=== PATIENT | female | born 1990 | race Caucasian/White ===

== ENCOUNTER 2017-06-04 04:18 | Emergency (ER) | payer BC, OTHER ==
[~2017-06-04] VITALS: Ht 154.9 cm; Wt 47.4 kg
[~2017-06-04 04:18] MED LIST: ALBUAER19 INH
[2017-06-04 04:23] VITALS: TEMP 36.6; Ht 154.9 cm; Wt 47.4 kg
[2017-06-04] MEDS ORDERED: SODIUM CHLORIDE 0.9% 1000ML 1,000 ML IV STA (04:31)
[2017-06-04 04:49] LABS: BASO % 0.1 %; BASO ABS # 0.01 K/uL (0-0.2); EOS % 1.1 %; EOS ABS # 0.14 K/uL (0-0.5); HEMATOCRIT 39.7 % (37-47); HEMOGLOBIN 13.6 g/dL (12.0-16.0); IG# 0.01 K/uL (0.00-0.02); LYMPH % 16.7 %; LYMPH ABS # 2.16 K/uL (1.2-3.4); MEAN CELL VOLUME 91.9 fL (80-100); MEAN CORPUSCULAR HEMOGLOBIN 31.5 pg (25-34); MEAN CORPUSCULAR HGB CONC 34.3 g/dl (32-36); MEAN PLATELET VOLUME 10.5 fL (7.4-10.4); MONO % 7.1 %; MONO ABS # 0.91 K/uL (0.11-0.59); NEUT % 74.9 %; NEUT ABS # 9.67 K/uL (1.4-6.5); PLATELET COUNT 249 K/uL (130-400); RED CELL DISTRIBUTION WIDTH CV 12.4 % (11.5-14.5); RED CELL DISTRIBUTION WIDTH SD 42.2 fL (36.4-46.3)
[2017-06-04 05:07] LABS: CALCIUM 8.6 mg/dl (8.5-10.1); CREATININE 0.68 mg/dl (0.60-1.20); POTASSIUM 3.7 mmol/L (3.5-5.1)
--- NOTE | 2017-06-04 05:54 | EMERGENCY ROOM VISIT NOTE ---
History First contact with patient: 04:26 Chief Complaint: HEADACHE Stated Complaint: HEADACHE,COLD/HOT FLASHES,VOMITING History of Present Illness The patient is a 27 year old female who presents to the Emergency Room with complaints of lightheadedness, nausea, vomiting, decreased by mouth intake and headache. Patient states she feels dehydrated. She is requesting IV fluids. Patient has a history of migraines. She describes the headache as throbbing, ranging in severity 6 out of 10 throughout her head. Nothing makes it better or worse. Patient denies chest pain, dyspnea, fever, chills, cough, congestion , cold symptoms, neck stiffness, sore throat, diarrhea, abdominal pain. Review of Systems See HPI for pertinent positives & negatives. A total of 10 systems reviewed and were otherwise negative. Past Medical/Surgical History Medical Problems: (1) 39 weeks gestation of (2) Anxiety (3) Asthma (4) section (5) History of - miscarriage (6) Migraine (7) Pelvic pain (8) 32+wks Surgical Problems: (1) Previous delivery affecting , delivered Family History FH: cancer FH: migraines MOTHER Social History Smoking Status: Never Smoker Alcohol Use: none Drug Use: none Marital Status: , in relationship Housing Status: lives with family Occupation Status: employed Current/Historical Medications No Active Prescriptions or Reported Meds Physical Exam Vital Signs Date Time Temp Pulse Resp B/P (MAP) Pulse Ox O2 Delivery O2 Flow Rate FiO2 18 04:23 36.6 86 18 128/86 99 Room Air Physical Exam VITALS: Vitals are noted on the nurse's note and reviewed by myself. Vital signs stable. GENERAL: Pleasant female ambulating without difficulties, in no acute distress, nondiaphoretic, well-developed well-nourished. SKIN: The skin was without rashes, erythema, edema, or bruising. There is no tenting of the skin. Capillary reflex less than 2 seconds. HEAD: Normocephalic atraumatic. EARS: External auditory canals clear, tympanic membranes pearly roque without erythema or effusion bilaterally. EYES: Pupils equal round and reactive to light and accommodation. Conjunctivae without injection, sclerae without icterus. Extraocular movements intact. NOSE: Patent, turbinates without inflammation or discharge. No sinus tenderness. MOUTH: Mucous membranes mildly dry. Pharynx without erythema or exudate. Uvula midline. Airway patent. Tongue does not deviate. NECK: Supple without nuchal rigidity. No lymphadenopathy. No thyromegaly. Cervical spine is nontender. No JVD. HEART: Regular rate and rhythm without murmurs gallops or rubs. LUNGS: Clear to auscultation bilaterally without wheezes, rales or rhonchi. No dullness to percussion. No retractions or accessory muscle use. ABDOMEN: Positive bowel sounds x 4. Normal tympanic percussion. Soft, nontender, without masses or organomegaly. Tomlin sign negative. No guarding or rebound tenderness. MUSCULOSKELETAL: No muscle atrophy, erythema, or edema noted. NEURO: Patient was alert and oriented to person place and time. Normal sensation to light and sharp touch. No focal neurological deficits. Cranial nerves II-12 grossly intact. No pronator drift. Cerebellar exam intact. Medical Decision & Procedures Laboratory Results 06/04/17 04:35 Red Blood Count 4.32, Mean Corpuscular Volume 91.9, Mean Corpuscular Hemoglobin 31.5, Mean Corpuscular Hemoglobin Concent 34.3, Mean Platelet Volume 10.5, Neutrophils (%) (Auto) 74.9, Lymphocytes (%) (Auto) 16.7, Monocytes (%) (Auto) 7.1, Eosinophils (%) (Auto) 1.1, Basophils (%) (Auto) 0.1, Neutrophils # (Auto) 9.67, Lymphocytes # (Auto) 2.16, Monocytes # (Auto) 0.91, Eosinophils # (Auto) 0.14, Basophils # (Auto) 0.01 06/04/17 04:35 Test 06/04/17 04:35 White Blood Count 12.90 K/uL (4.8-10.8) Red Blood Count 4.32 M/uL (4.2-5.4) Hemoglobin 13.6 g/dL (12.0-16.0) Hematocrit 39.7 % (37-47) Mean Corpuscular Volume 91.9 fL (80-100) Mean Corpuscular Hemoglobin 31.5 pg (25-34) Mean Corpuscular Hemoglobin Concent 34.3 g/dl (32-36) Platelet Count 249 K/uL (130-400) Mean Platelet Volume 10.5 fL (7.4-10.4) Neutrophils (%) (Auto) 74.9 % Lymphocytes (%) (Auto) 16.7 % Monocytes (%) (Auto) 7.1 % Eosinophils (%) (Auto) 1.1 % Basophils (%) (Auto) 0.1 % Neutrophils # (Auto) 9.67 K/uL (1.4-6.5) Lymphocytes # (Auto) 2.16 K/uL (1.2-3.4) Monocytes # (Auto) 0.91 K/uL (0.11-0.59) Eosinophils # (Auto) 0.14 K/uL (0-0.5) Basophils # (Auto) 0.01 K/uL (0-0.2) RDW Standard Deviation 42.2 fL (36.4-46.3) RDW Coefficient of Variation 12.4 % (11.5-14.5) Immature Granulocyte % (Auto) 0.1 % Immature Granulocyte # (Auto) 0.01 K/uL (0.00-0.02) Anion Gap 7.0 mmol/L (3-11) Est Creatinine Clear Calc Drug Dose 94.6 ml/min Estimated GFR () 140.9 Estimated GFR (Non- 121.6 BUN/Creatinine Ratio 22.5 (10-20) Calcium Level 8.6 mg/dl (8.5-10.1) Human Chorionic Gonadotropin, Qual NEG (NEG) Medications Administered Medications (Trade) Dose Ordered Sig/Gina Route Start Time Stop Time Status Last Admin Dose Admin Sodium Chloride 1,000 ml @ 999 mls/hr Q1H1M STAT IV 06/04/17 04:31 06/04/17 05:31 DC 06/04/17 04:37 999 MLS/HR ED Course Prior records/ancillary studies reviewed. Additional history obtained from family. Triage Nursing notes reviewed. The patient's history was concerning for headache. Differential diagnosis: Etiologies such as migraine headache, meningitis, sinusitis, CO exposure, ICH, SAH, infection, tumor, headache, sinus thrombosis, arterial dissection, as well as others were entertained. Physical examination findings: As above. Non-focal. ER treatment provided: NSS On reassessment the patient felt better. Diagnostics interpreted by me: The labs revealed mild hyperglycemia without DKA. Negative hCG Leukocytosis, most likely marginalization from vomiting Imaging studies: Head CT negative for intracranial bleed per radiology and review This appears to be consistent with headache. Patient was neurovascularly and neurologically intact. Unremarkable workup as above. She felt much better to be medicated as above. She is advised to rest, stay well-hydrated and follow- up family care in a few days or here in the ER sooner for headache, fevers, vomiting, worsening signs or symptoms or as needed. Patient had no signs of meningitis.. By the evaluation outlined above emergent etiologies such as meningitis, sinusitis, CO exposure, ICH, SAH, infection, temporal arteritis, tumor, sinus thrombosis, arterial dissection, as well as others were deemed relatively unlikely. The pt informed about the findings as listed above. All questions were answered and pleased with the treatment. Return instructions were outlined and the patient was discharged in stable condition. Case reviewed with my attending Referral: The patient was referred back to their primary care physician for follow-up in 2 to 3 days for a recheck of the current condition. Medical Decision as above Medication Reconcilliation Current Medication List: was personally reviewed by me Blood Pressure Screening Patient's blood pressure: Normal blood pressure Impression Primary Impression: Headache Additional Impression: Vomiting Departure Information Dispostion Home / Self-Care Condition GOOD Prescriptions No Active Prescriptions or Reported Meds Referrals Estuardo Perez M.D. (PCP) Patient Instructions My [facility] Additional Instructions DO NOT drive, drink alcohol, operate machinery, or perform dangerous activities today. You were given medications in the ER that can affect your ability to safely function or operate a vehicle. Rest today in a quiet, peaceful, dark environment and get a full 8-10 hrs of sleep tonight. Avoid loud noises, smoke/smoking, alcohol, bright lights, stress, or physical exertion today to minimize the chance the headache may return. Continue current medications. Ibuprofen(Motrin, Advil) may be used for fever or pain. Use 400mg every six hours as needed. Take with food. Avoid using more than 1600mg in a 24 hour period. Do not use 1600mg per day for more than three consecutive days without physician direction. Prolonged inappropriate use can lead to stomach upset or ulcers. (AND/OR) Acetaminophen(Tylenol) may be used for fever or pain. Use 500mg every six hours as needed. Avoid using more than 2000mg in a 24 hour period. Return to the ER for passing out, worsening headache, vision problems, neck stiffness/pain, fevers, vomiting, worsening of your condition, or as needed. Follow up with your primary physician and/or a neurologist in 2-3 days for a recheck of your current condition. Problem Qualifiers Primary Impression: Headache Headache type: unspecified Headache chronicity pattern: acute headache Intractability: not intractable Qualified Codes: R51 - Headache
[2017-06-04] MEDS ORDERED: ACETAMINOPHEN 500 MG TAB PO STA (05:59)
[2017-06-04] MEDS ORDERED: ONDANSETRON HOME PACK 4MG OD TAB PO ONE (06:30)
[2017-06-04 06:37] VITALS: BP 106/79; PULSE 83; O2SAT 100
--- NOTE | 2017-06-04 07:40 | DIAGNOSTIC IMAGING REPORT ---
CT HEAD WITHOUT CONTRAST (CT) CLINICAL HISTORY: Severe headache COMPARISON STUDY: 08/20/2013 TECHNIQUE: Axial CT of the brain is performed from the vertex to the skull base. IV contrast was not administered for this examination. A dose lowering technique was utilized adhering to the principles of ALARA. CT DOSE: 537.48 mGy.cm FINDINGS: No intra or extra-axial mass lesions are visualized. There is no CT evidence of acute cortical infarction. There is no evidence of midline shift. There is no acute hemorrhage. No calvarial fractures are visualized. There is a small partially calcified right parietal scalp lesion, likely representing a sebaceous cyst. There is no evidence of pathologic ventricular dilatation. There is no evidence of acute sinusitis IMPRESSION: No acute intracranial findings Electronically signed by: Ramo Short M.D. 06/04/2017 7:39 AM Dictated Date/Time: 06/04/2017 7:38 AM
== END 2017-06-04 06:38 | disposition home or self-care (01) ==
LOC: C.EDB 04:19
DX: R51 Headache (principal); R11.10 Vomiting, unspecified; F41.9 Anxiety disorder, unspecified; J45.909 Unspecified asthma, uncomplicated; Z80.9 Family history of malignant neoplasm, unspecified

== ENCOUNTER 2017-08-03 19:16 | Emergency (ER) | payer BC, OTHER ==
[~2017-08-03] VITALS: Ht 154.9 cm; Wt 48.2 kg
[2017-08-03 19:20] VITALS: TEMP 36.6; Ht 154.9 cm; Wt 48.2 kg
[2017-08-03] MEDS ORDERED: SODIUM CHLORIDE 0.9% 500ML 500 ML IV STA (19:55)
[2017-08-03] MEDS ORDERED: DiphenhydrAMINE 2%/ZINC 0.1% CREAM 28GM TUBE EXT STA (20:26)
[2017-08-03 21:08] LABS: BASO % 0.2 %; BASO ABS # 0.02 K/uL (0-0.2); EOS % 1.2 %; EOS ABS # 0.11 K/uL (0-0.5); HEMOGLOBIN 13.3 g/dL (12.0-16.0); IG# 0.01 K/uL (0.00-0.02); LYMPH % 30.3 %; LYMPH ABS # 2.88 K/uL (1.2-3.4); MEAN CELL VOLUME 90.7 fL (80-100); MEAN CORPUSCULAR HEMOGLOBIN 30.9 pg (25-34); MEAN CORPUSCULAR HGB CONC 34.1 g/dl (32-36); MEAN PLATELET VOLUME 10.8 fL (7.4-10.4); MONO % 10.6 %; MONO ABS # 1.01 K/uL (0.11-0.59); NEUT % 57.6 %; NEUT ABS # 5.48 K/uL (1.4-6.5); PLATELET COUNT 239 K/uL (130-400); RED CELL DISTRIBUTION WIDTH CV 12.6 % (11.5-14.5); RED CELL DISTRIBUTION WIDTH SD 41.8 fL (36.4-46.3); WHITE BLOOD COUNT 9.51 K/uL (4.8-10.8)
[2017-08-03 21:10] LABS: CALCIUM 9.2 mg/dl (8.5-10.1); CREATININE 0.64 mg/dl (0.60-1.20); POTASSIUM 3.4 mmol/L (3.5-5.1)
[2017-08-03] MEDS ORDERED: RANI150T85 PO (21:31)
[2017-08-03] MEDS ORDERED: PRED50TA PO (21:31)
--- NOTE | 2017-08-03 21:32 | EMERGENCY ROOM VISIT NOTE ---
History First contact with patient: 19:36 Chief Complaint: PAIN (GENERALIZED) Stated Complaint: RASH History of Present Illness The patient is a 27 year old female who presents to the Emergency Room with complaints of swelling in the vaginal area that she noticed earlier today. The patient also complains of itching in the area. She is sexually active with one partner. She had multiple bouts of vaginal intercourse yesterday. She does report slight pain with intercourse towards the end. She denies any vaginal discharge. The patient also notes a rash to her chest. She denies any difficulty breathing. No trouble swallowing. The patient switched bath soaps about 1 week ago. They did not use condoms or lubricants during sex. Review of Systems 10 system review performed and negative unless noted in HPI or below Past Medical/Surgical History Medical Problems: (1) 39 weeks gestation of (2) Anxiety (3) Asthma (4) section (5) History of - miscarriage (6) Migraine (7) Pelvic pain (8) 32+wks Surgical Problems: (1) Previous delivery affecting , delivered Family History FH: cancer FH: migraines MOTHER Social History Smoking Status: Never Smoker Alcohol Use: none Drug Use: none Marital Status: , in relationship Housing Status: lives with family Occupation Status: employed Current/Historical Medications Scheduled Prednisone (Prednisone), 50 MG PO DAILY Ranitidine (Zantac), 150 MG PO BID Physical Exam Vital Signs Date Time Temp Pulse Resp B/P (MAP) Pulse Ox O2 Delivery O2 Flow Rate FiO2 08/03/17 20:20 95 22 98 Room Air 08/03/17 19:20 36.6 95 20 147/96 97 Room Air Physical Exam VITALS: Vitals are noted on the nurse's note and reviewed by myself. Vital signs stable. GENERAL: 27-year-old female, in no acute distress, nondiaphoretic, well- developed well-nourished. SKIN: Flat erythematous, blanching, blotchy lesions noted to the chest and back. HEAD: Normocephalic atraumatic. MOUTH: Mucous membranes moist. No swelling of the oral mucosa HEART: Regular rate and rhythm without murmurs gallops or rubs. LUNGS: Clear to auscultation bilaterally without wheezes, rales or rhonchi. No accessory muscle use. ABDOMEN: Positive bowel sounds x 4.Soft, nontender, without organomegaly. No guarding or rebound tenderness. : Left labia minora is edematous. Mildly erythematous. No lesions. Speculum exam reveals a small amount of cream discharge in the vaginal vault. Cervix is pink. The osseous closed. MUSCULOSKELETAL: No muscle atrophy, erythema, or edema noted. Strength 5/5 throughout. NEURO: Patient was alert and oriented to person place and time. Normal sensation to touch. No focal neurological deficits. Medical Decision & Procedures Laboratory Results 08/03/17 20:00 Red Blood Count 4.30, Mean Corpuscular Volume 90.7, Mean Corpuscular Hemoglobin 30.9, Mean Corpuscular Hemoglobin Concent 34.1, Mean Platelet Volume 10.8, Neutrophils (%) (Auto) 57.6, Lymphocytes (%) (Auto) 30.3, Monocytes (%) (Auto) 10.6, Eosinophils (%) (Auto) 1.2, Basophils (%) (Auto) 0.2, Neutrophils # (Auto ) 5.48, Lymphocytes # (Auto) 2.88, Monocytes # (Auto) 1.01, Eosinophils # (Auto ) 0.11, Basophils # (Auto) 0.02 08/03/17 20:00 Test 08/03/17 20:00 White Blood Count 9.51 K/uL (4.8-10.8) Red Blood Count 4.30 M/uL (4.2-5.4) Hemoglobin 13.3 g/dL (12.0-16.0) Hematocrit 39.0 % (37-47) Mean Corpuscular Volume 90.7 fL (80-100) Mean Corpuscular Hemoglobin 30.9 pg (25-34) Mean Corpuscular Hemoglobin Concent 34.1 g/dl (32-36) Platelet Count 239 K/uL (130-400) Mean Platelet Volume 10.8 fL (7.4-10.4) Neutrophils (%) (Auto) 57.6 % Lymphocytes (%) (Auto) 30.3 % Monocytes (%) (Auto) 10.6 % Eosinophils (%) (Auto) 1.2 % Basophils (%) (Auto) 0.2 % Neutrophils # (Auto) 5.48 K/uL (1.4-6.5) Lymphocytes # (Auto) 2.88 K/uL (1.2-3.4) Monocytes # (Auto) 1.01 K/uL (0.11-0.59) Eosinophils # (Auto) 0.11 K/uL (0-0.5) Basophils # (Auto) 0.02 K/uL (0-0.2) RDW Standard Deviation 41.8 fL (36.4-46.3) RDW Coefficient of Variation 12.6 % (11.5-14.5) Immature Granulocyte % (Auto) 0.1 % Immature Granulocyte # (Auto) 0.01 K/uL (0.00-0.02) Anion Gap 6.0 mmol/L (3-11) Est Creatinine Clear Calc Drug Dose 101.3 ml/min Estimated GFR () 143.7 Estimated GFR (Non- 124.0 BUN/Creatinine Ratio 19.3 (10-20) Calcium Level 9.2 mg/dl (8.5-10.1) Human Chorionic Gonadotropin, Qual NEG (NEG) Medications Administered Medications (Trade) Dose Ordered Sig/Gina Route Start Time Stop Time Status Last Admin Dose Admin Sodium Chloride 500 ml @ 999 mls/hr Q31M STAT IV 08/03/17 19:55 08/03/17 20:25 DC 08/03/17 20:19 999 MLS/HR Diphenhydramine HCl (Benadryl Extra Strength Cream) 1 appln ONE STAT EXT 08/03/17 20:26 08/03/17 20:28 DC 08/03/17 20:42 1 [facility] Patient was seen and examined Vital signs including blood pressure were reviewed medications list was verified with patient Labs were obtained, and a saline lock was established Topical Benadryl was applied to the labia minora. The patient was hydrated with normal saline. I suggested that we give the patient steroids and Benadryl. She refused. The patient was observed for 2 hours. The rash began to dissipate. I reviewed discharge instructions the patient. They voiced understanding and had no further questions. Medical Decision Differential diagnosis: Allergic reaction, adverse reaction, angioedema, chafing This patient is a 27-year-old female that presents to the emergency department with swelling to the labia minora and itching since having sexual intercourse with her significant other yesterday. The patient did not have any complaints of vaginal discharge or fever to suggest infection. On exam, she had hives on her chest and back. She also had edema of the left labia minora. This is consistent with an allergic reaction, possibly due to the change in body wash. I believe that there is an element of chafing from sexual intercourse. She has no signs of anaphylaxis or angioedema. I believe she is stable to be discharged home. I did suggest Benadryl, steroids and Zantac. The patient is hesitant on taking medications. A prescription was provided. She will follow- up with her primary care physician. I encouraged her to return to the emergency department with worsening symptoms. This chart was completed in part utilizing [employer] Speech Voice Recognition software. Attempts were made to minimize the grammatical errors, random word insertions, pronoun errors and incomplete sentences. Any formal questions or concerns about the content, text or information contained within the body of this dictation should be directly addressed to the provider for clarification. Impression Primary Impression: Allergic reaction Departure Information Dispostion Home / Self-Care Condition GOOD Prescriptions Prednisone (Prednisone) 50 Mg Tab 50 MG PO DAILY for 5 Days, #5 TAB Prov: Giovanna Winchester PA-C 08/03/17 Ranitidine (Zantac) 150 Mg Tab 150 MG PO BID for 5 Days, #10 TAB Prov: Giovanna Winchester PA-C 08/03/17 Referrals Estuardo Perez M.D. (PCP) Patient Instructions My [facility] Additional Instructions You have been evaluated today for swelling in the genital area in addition to a rash. This is likely an allergic reaction. Please apply Benadryl cream to the affected area every 6 hours as needed for itching or discomfort Please take oral Benadryl 1 tablet every 8 hours as needed for itching/rash please take the entire course of steroids Please take the entire course of Zantac Follow-up with her primary care physician within 1 week for recheck No sexual intercourse until symptoms have resolved Please do not hesitate to return to the emergency department with any new, worsening or concerning symptoms; especially, swelling of the lips, face or tongue, difficulty swallowing or difficulty breathing
[2017-08-03 21:50] VITALS: BP 131/91; PULSE 89; O2SAT 99
== END 2017-08-03 21:50 | disposition home or self-care (01) ==
LOC: C.EDB 19:18
DX: T78.40XA Allergy, unspecified, initial encounter (principal); X58.XXXA Exposure to other specified factors, initial encounter; J45.909 Unspecified asthma, uncomplicated; Z82.0 Family history of epilepsy and other diseases of the nervous system